=== PATIENT | male | born 1940 | race Caucasian/White ===

== ENCOUNTER 2016-05-12 07:16 | Inpatient (IN) | payer MEDICARE, BC ==
[2016-05-10 13:56] VITALS: BP 118/80
[2016-05-10 14:48] LABS: HEMOGLOBIN 13.4 g/dL (13.7-18.0)
[2016-05-10 14:58] LABS: BLOOD UREA NITROGEN 19 mg/dL (7-18)
[2016-05-10 15:01] LABS: ASPARTATE AMINO TRANSFERASE 8 U/L (15-37)
[~2016-05-12] VITALS: Ht 165.1 cm; Wt 73.4 kg
[~2016-05-12 07:16] MED LIST: BUPIVACAINE/PF-EPI 0.5% 1:200K ONE; FAMOTIDINE 20 MG TABLET PO SCH; LOSA100T6 PO; METF10002 PO
[2016-05-12] MEDS ORDERED: LACTATED RINGERS 1,000 ML IV SCH (08:08)
[2016-05-12] MEDS ORDERED: LIDOCAINE 1%, 2ML ONE (08:12)
[2016-05-12] MEDS ORDERED: LIDOCAINE 1%, 2ML SQ PRN (08:30)
[2016-05-12] MEDS ORDERED: FENTANYL PF 250 MCG/5ML ONE (09:47)
[2016-05-12] MEDS ORDERED: MIDAZOLAM 1 MG/ML, 2ML ONE (09:47)
[2016-05-12] MEDS ORDERED: DEXAMETHASONE 4 MG/ML, 1ML ONE (10:48)
[2016-05-12] MEDS ORDERED: GLYCOPYRROLATE 0.2MG/1ML ONE (10:48)
[2016-05-12] MEDS ORDERED: CEFAZOLIN 1,000 MG ONE (10:48)
[2016-05-12] MEDS ORDERED: ONDANSETRON 2MG/ML, 2ML ONE (10:48)
[2016-05-12] MEDS ORDERED: SUCCINYLCHOLINE 20 MG/ML, 10ML ONE (10:48)
[2016-05-12] MEDS ORDERED: ROCURONIUM 10 MG/ML ONE (10:48)
[2016-05-12] MEDS ORDERED: NEOSTIGMINE 1 MG/ML, 10ML ONE (10:48)
[2016-05-12] MEDS ORDERED: PROPOFOL 10 MG/ML, 20ML ONE (10:48)
[2016-05-12] MEDS ORDERED: VASOPRESSIN 20 UNIT/ML, 1ML ONE (11:16)
[2016-05-12] MEDS ORDERED: METOPROLOL 1 MG/ML, 5ML IV PRN (12:00)
[2016-05-12] MEDS ORDERED: ONDANSETRON 2MG/ML, 2ML IVPush PRN (12:00)
[2016-05-12] MEDS ORDERED: EPHEDRINE 50 MG/ML, 1ML IVPush PRN (12:00)
[2016-05-12] MEDS ORDERED: HYDROmorphone 1 MG/ML, 1ML IV PRN (12:00)
[2016-05-12] MEDS ORDERED: ALBUTEROL SULFATE 2.5 MG/3 ML NPPB PRN (12:00)
[2016-05-12] MEDS ORDERED: OXYcodone 5 MG/5 ML ORAL.SOL UDC PO PRN (12:00)
[2016-05-12] MEDS ORDERED: ACETAMINOPHEN 325 MG TABLET PO PRN ×2 (12:00→13:00)
[2016-05-12] MEDS ORDERED: MIDAZOLAM 1 MG/ML, 2ML IV PRN (12:00)
[2016-05-12] MEDS ORDERED: hydrALAzine 20 MG/ML, 1ML IV PRN (12:00)
[2016-05-12] MEDS ORDERED: LABETALOL 5MG/ML, 20ML IV PRN (12:00)
[2016-05-12] MEDS ORDERED: MEPERIDINE/PF 25MG/0.5ML IVPush PRN (12:00)
[2016-05-12] MEDS ORDERED: OXYcodone 5 MG/5 ML ORAL.SOL UDC ONE (12:52)
[2016-05-12] MEDS ORDERED: ACETAMINOPHEN 325 MG TABLET ONE (12:52)
[2016-05-12] MEDS ORDERED: ACETAMINOPHEN 650 MG/20.3 ML UDC ONE (12:52)
[2016-05-12] MEDS ORDERED: FENTANYL PF 100 MCG/2ML ONE (12:52)
[2016-05-12] MEDS: FENTANYL PF 100 MCG/2ML IV PRN ×4 (12:55→13:58)
[2016-05-12] MEDS: INSULIN REGULAR 100 UNITS/ML, 3ML VIAL SQ-INSULIN SCH ×3 (13:00→20:08)
[2016-05-12] MEDS ORDERED: FAMOTIDINE 20 MG/2 ML IVPush SCH (13:00)
[2016-05-12] MEDS ORDERED: FAMOTIDINE 20 MG TABLET PO SCH (13:00)
[2016-05-12] MEDS ORDERED: CEFAZOLIN PMX 1GM/50ML 50 ML IVPB SCH (13:00)
[2016-05-12] MEDS ORDERED: ENALAPRILAT 1.25 MG/ML, 2ML IVPush PRN (13:00)
[2016-05-12] MEDS ORDERED: LORazepam 1MG TABLET PO PRN (13:00)
[2016-05-12] MEDS ORDERED: ACETAMINOPHEN 650 MG SUPP PR PRN (13:00)
[2016-05-12] MEDS ORDERED: DIPHENHYDRAMINE 25 MG CAPSULE PO PRN (13:00)
[2016-05-12] MEDS ORDERED: hydrALAzine 20 MG/ML, 1ML IVPush PRN (13:00)
[2016-05-12] MEDS ORDERED: DIPHENHYDRAMINE 50 MG/ML, 1ML IVPush PRN (13:00)
[2016-05-12] MEDS ORDERED: LORazepam 2 MG/ML, 1ML IVPush PRN (13:00)
[2016-05-12 14:49] VITALS: BP 121/72
[2016-05-12] MEDS: HYDROcodone/APAP 5/325 TABLET PO PRN (16:12)
[2016-05-12] MEDS: LACTATED RINGERS 1,000 ML IV SCH (16:21)
[2016-05-12] MEDS: ONDANSETRON 2MG/ML, 2ML IVPush PRN (17:33)
[2016-05-12 18:20] VITALS: BP 138/82
[2016-05-12] MEDS: CEFAZOLIN PMX 1GM/50ML 50 ML IVPB SCH (19:41)
[2016-05-12] MEDS: metFORMIN 500 MG TABLET PO SCH (20:16)
[2016-05-12 23:48] VITALS: BP 124/71
[2016-05-13] MEDS: ONDANSETRON 2MG/ML, 2ML IVPush PRN ×3 (00:40→15:47)
[2016-05-13 04:00] VITALS: BP 121/73
[2016-05-13] MEDS: HYDROcodone/APAP 5/325 TABLET PO PRN (04:42)
[2016-05-13] MEDS: CEFAZOLIN PMX 1GM/50ML 50 ML IVPB SCH (04:42)
[2016-05-13] MEDS: FAMOTIDINE 20 MG TABLET PO SCH ×2 (04:42→16:30)
[2016-05-13 05:02] LABS: BLOOD UREA NITROGEN 25 mg/dL (7-18)
[2016-05-13 05:03] LABS: HEMOGLOBIN 10.2 g/dL (13.7-18.0)
[2016-05-13 06:42] VITALS: BP 115/74
[2016-05-13] MEDS: INSULIN REGULAR 100 UNITS/ML, 3ML VIAL SQ-INSULIN SCH ×4 (07:00→19:46)
[2016-05-13] MEDS: LACTATED RINGERS 1,000 ML IV SCH (08:00)
[2016-05-13] MEDS: LOSARTAN 50MG TABLET PO SCH (08:55)
[2016-05-13] MEDS: metFORMIN 500 MG TABLET PO SCH ×2 (08:56→19:40)
[2016-05-13] MEDS: ENOXAPARIN 40 MG/0.4 ML SQ SCH (08:56)
[2016-05-13] MEDS ORDERED: MORPHINE SULFATE 4 MG/ML, 1ML IVPush PRN (11:30)
[2016-05-13 12:30] VITALS: BP 125/78
[2016-05-13 18:20] VITALS: BP 112/70
[2016-05-14] MEDS: HYDROcodone/APAP 5/325 TABLET PO PRN (01:05)
[2016-05-14 01:06] VITALS: BP 118/73
[2016-05-14] MEDS: FAMOTIDINE 20 MG TABLET PO SCH (05:00)
[2016-05-14 06:41] VITALS: BP 104/69
[2016-05-14] MEDS: INSULIN REGULAR 100 UNITS/ML, 3ML VIAL SQ-INSULIN SCH ×2 (07:00→12:06)
[2016-05-14] MEDS: ENOXAPARIN 40 MG/0.4 ML SQ SCH (08:53)
[2016-05-14] MEDS: LOSARTAN 50MG TABLET PO SCH (08:54)
[2016-05-14] MEDS: metFORMIN 500 MG TABLET PO SCH (08:54)
== END 2016-05-14 12:44 | disposition home or self-care (01) | DRG 165 ==
LOC: ORIP 07:16 → 3NW 14:24
PROVIDERS: ADMIT Thoracic Surgery (Cardiothoracic Vascular Surgery); ATTEND Thoracic Surgery (Cardiothoracic Vascular Surgery)
PROC: 07B74ZX Excision of Thorax Lymphatic, Percutaneous Endoscopic Approach, Diagnostic (ICD-10-PCS; 2016-05-12)
PROC: 0BTD4ZZ Resection of Right Middle Lung Lobe, Percutaneous Endoscopic Approach (ICD-10-PCS; principal; 2016-05-12 10:00)
DX: C34.2 Malignant neoplasm of middle lobe, bronchus or lung (principal); Z87.891 Personal history of nicotine dependence; I10 Essential (primary) hypertension; E11.9 Type 2 diabetes mellitus without complications; G47.33 Obstructive sleep apnea (adult) (pediatric); Z98.49 Cataract extraction status, unspecified eye
CPT/HCPCS: 36415; 71010; 80048; 80053; 82962; 85025; 86850; 86900; 86923; 88305; 88309; 93005; C1729; J0690; J1100; J1650; J1815; J2250; J2270; J2405; J2704; J2710; J3010; J3490; C1760; J0330; S0028

== ENCOUNTER → 2016-11-30 | Outpatient (CLI) | payer BC ==
[~2016-11-30] MED LIST changes: -BUPIVACAINE/PF-EPI 0.5% 1:200K ONE; -FAMOTIDINE 20 MG TABLET PO SCH
== END | disposition home or self-care (01) ==
LOC: ROC 13:04
PROVIDERS: ATTEND Radiology Radiation Oncology
DX: C34.2 Malignant neoplasm of middle lobe, bronchus or lung (principal); E11.9 Type 2 diabetes mellitus without complications; I10 Essential (primary) hypertension; Z87.891 Personal history of nicotine dependence
CPT/HCPCS: 99213; G0463

== ENCOUNTER → 2016-12-04 | Outpatient (CLI) | payer BC ==
[~2016-12-04] MED LIST changes: +GADOBUTROL 7.5 MMOL/7.5 ML PFS ONE
== END | disposition home or self-care (01) ==
LOC: CFH 13:00
PROVIDERS: ATTEND Radiology Radiation Oncology
DX: C34.2 Malignant neoplasm of middle lobe, bronchus or lung (principal); C79.31 Secondary malignant neoplasm of brain; G31.9 Degenerative disease of nervous system, unspecified; I10 Essential (primary) hypertension; E11.9 Type 2 diabetes mellitus without complications
CPT/HCPCS: 70553; A9585

== ENCOUNTER → 2017-01-17 | Outpatient (CLI) | payer BC ==
[~2017-01-17] MED LIST changes: -GADOBUTROL 7.5 MMOL/7.5 ML PFS ONE
== END | disposition home or self-care (01) ==
LOC: ROC 07:29
PROVIDERS: ATTEND Radiology Radiation Oncology
DX: C34.90 Malignant neoplasm of unspecified part of unspecified bronchus or lung (principal); E11.9 Type 2 diabetes mellitus without complications
CPT/HCPCS: 99213; G0463

== ENCOUNTER → 2017-03-06 | Outpatient (CLI) | payer BC ==
[~2017-03-06] MED LIST changes: +GADOBUTROL 7.5 MMOL/7.5 ML PFS ONE
== END | disposition home or self-care (01) ==
LOC: CFH 10:24
PROVIDERS: ATTEND Radiology Radiation Oncology
DX: C79.31 Secondary malignant neoplasm of brain (principal); C34.90 Malignant neoplasm of unspecified part of unspecified bronchus or lung; G31.89 Other specified degenerative diseases of nervous system
CPT/HCPCS: 70553; A9585

== ENCOUNTER → 2017-03-07 | Outpatient (CLI) | payer BC ==
[~2017-03-07] MED LIST changes: -GADOBUTROL 7.5 MMOL/7.5 ML PFS ONE
== END | disposition home or self-care (01) ==
LOC: ROC 07:59
PROVIDERS: ATTEND Radiology Radiation Oncology
DX: Z08 Encounter for follow-up examination after completed treatment for malignant neoplasm (principal); C34.2 Malignant neoplasm of middle lobe, bronchus or lung
CPT/HCPCS: 99213; G0463

== ENCOUNTER → 2017-05-08 | Outpatient (CLI) | payer BC ==
[~2017-05-08] MED LIST changes: +GADOBUTROL 7.5 MMOL/7.5 ML VIAL ONE
== END ==
LOC: CFH 08:57
PROVIDERS: ATTEND Radiology Radiation Oncology
DX: C79.31 Secondary malignant neoplasm of brain (principal); C34.91 Malignant neoplasm of unspecified part of right bronchus or lung
CPT/HCPCS: 70553; A9585

== ENCOUNTER → 2017-05-10 | Outpatient (CLI) | payer BC ==
[~2017-05-10] MED LIST changes: -GADOBUTROL 7.5 MMOL/7.5 ML VIAL ONE
== END | disposition home or self-care (01) ==
LOC: ROC 09:03
PROVIDERS: ATTEND Radiology Radiation Oncology
DX: Z08 Encounter for follow-up examination after completed treatment for malignant neoplasm (principal); C71.1 Malignant neoplasm of frontal lobe; C34.2 Malignant neoplasm of middle lobe, bronchus or lung
CPT/HCPCS: 99213; G0463

== ENCOUNTER → 2017-07-06 | Outpatient (CLI) | payer BC ==
[~2017-07-06] MED LIST changes: +GADOBUTROL 7.5 MMOL/7.5 ML PFS ONE
== END | disposition home or self-care (01) ==
LOC: CFH 11:56
PROVIDERS: ATTEND Radiology Radiation Oncology
DX: C79.31 Secondary malignant neoplasm of brain (principal); C34.2 Malignant neoplasm of middle lobe, bronchus or lung; I10 Essential (primary) hypertension
CPT/HCPCS: 70553; A9585

== ENCOUNTER → 2017-07-11 | Outpatient (CLI) | payer BC ==
[~2017-07-11] MED LIST changes: -GADOBUTROL 7.5 MMOL/7.5 ML PFS ONE
== END | disposition home or self-care (01) ==
LOC: ROC 07:18
PROVIDERS: ATTEND Radiology Radiation Oncology
DX: Z08 Encounter for follow-up examination after completed treatment for malignant neoplasm (principal); C34.2 Malignant neoplasm of middle lobe, bronchus or lung; C79.31 Secondary malignant neoplasm of brain
CPT/HCPCS: 99213; G0463

== ENCOUNTER → 2017-09-05 | Outpatient (CLI) | payer BC ==
[~2017-09-05] MED LIST changes: +GADOBUTROL 7.5 MMOL/7.5 ML PFS ONE
== END | disposition home or self-care (01) ==
LOC: CFH 07:15
PROVIDERS: ATTEND Radiology Radiation Oncology
DX: C79.31 Secondary malignant neoplasm of brain (principal); R90.82 White matter disease, unspecified; I10 Essential (primary) hypertension; C34.2 Malignant neoplasm of middle lobe, bronchus or lung
CPT/HCPCS: 70553; A9585

== ENCOUNTER → 2017-09-12 | Outpatient (CLI) | payer BC ==
[~2017-09-12] MED LIST changes: -GADOBUTROL 7.5 MMOL/7.5 ML PFS ONE
== END | disposition home or self-care (01) ==
LOC: ROC 07:18
PROVIDERS: ATTEND Radiology Radiation Oncology
DX: C34.2 Malignant neoplasm of middle lobe, bronchus or lung (principal)
CPT/HCPCS: 99213; G0463

== ENCOUNTER → 2017-11-07 | Outpatient (CLI) | payer BC ==
[~2017-11-07] MED LIST changes: +GADOBUTROL 7.5 MMOL/7.5 ML PFS ONE
== END | disposition home or self-care (01) ==
LOC: CFH 10:39
PROVIDERS: ATTEND Radiology Radiation Oncology
DX: C79.31 Secondary malignant neoplasm of brain (principal); C34.90 Malignant neoplasm of unspecified part of unspecified bronchus or lung; E11.9 Type 2 diabetes mellitus without complications
CPT/HCPCS: 70553; A9585

== ENCOUNTER → 2017-11-14 | Outpatient (CLI) | payer BC ==
[~2017-11-14] MED LIST changes: -GADOBUTROL 7.5 MMOL/7.5 ML PFS ONE
== END | disposition home or self-care (01) ==
LOC: ROC 07:17
PROVIDERS: ATTEND Radiology Radiation Oncology
DX: C79.31 Secondary malignant neoplasm of brain (principal); C34.2 Malignant neoplasm of middle lobe, bronchus or lung; E11.9 Type 2 diabetes mellitus without complications
CPT/HCPCS: 99213; G0463

== ENCOUNTER → 2018-01-02 | Outpatient (CLI) | payer BC ==
[~2018-01-02] MED LIST changes: +GADOBUTROL 7.5 MMOL/7.5 ML PFS ONE; -LOSA100T6 PO; +LOSA100T7 PO
== END | disposition home or self-care (01) ==
LOC: CFH 10:01
PROVIDERS: ATTEND Radiology Radiation Oncology
DX: G31.9 Degenerative disease of nervous system, unspecified (principal); R90.82 White matter disease, unspecified; C79.31 Secondary malignant neoplasm of brain
CPT/HCPCS: 70553; A9585

== ENCOUNTER → 2018-01-09 | Outpatient (CLI) | payer BC ==
[~2018-01-09] MED LIST changes: -GADOBUTROL 7.5 MMOL/7.5 ML PFS ONE
== END | disposition home or self-care (01) ==
LOC: ROC 08:48
PROVIDERS: ATTEND Radiology Radiation Oncology
DX: C79.31 Secondary malignant neoplasm of brain (principal); C34.2 Malignant neoplasm of middle lobe, bronchus or lung
CPT/HCPCS: 99213; G0463

== ENCOUNTER → 2018-04-08 | Outpatient (CLI) | payer BC ==
[~2018-04-08] MED LIST changes: +GADOBUTROL 7.5 MMOL/7.5 ML PFS ONE
== END | disposition home or self-care (01) ==
LOC: CFH 10:23
PROVIDERS: ATTEND Radiology Radiation Oncology
DX: G31.9 Degenerative disease of nervous system, unspecified (principal); I67.82 Cerebral ischemia; I10 Essential (primary) hypertension
CPT/HCPCS: 70553; A9585

== ENCOUNTER → 2018-04-10 | Outpatient (CLI) | payer BC ==
[~2018-04-10] MED LIST changes: -GADOBUTROL 7.5 MMOL/7.5 ML PFS ONE
== END | disposition home or self-care (01) ==
LOC: ROC 07:13
PROVIDERS: ATTEND Radiology Radiation Oncology
DX: Z08 Encounter for follow-up examination after completed treatment for malignant neoplasm (principal); C79.31 Secondary malignant neoplasm of brain
CPT/HCPCS: 99213; G0463

== ENCOUNTER → 2018-07-08 | Outpatient (CLI) | payer BC ==
[~2018-07-08] MED LIST changes: +GADOBUTROL 7.5 MMOL/7.5 ML PFS ONE; +LOSA100T14 PO; -LOSA100T7 PO
== END | disposition home or self-care (01) ==
LOC: CFH 09:01
PROVIDERS: ATTEND Radiology Radiation Oncology
DX: C79.49 Secondary malignant neoplasm of other parts of nervous system (principal); C34.90 Malignant neoplasm of unspecified part of unspecified bronchus or lung; G31.89 Other specified degenerative diseases of nervous system
CPT/HCPCS: 70553; A9585

== ENCOUNTER → 2018-07-10 | Outpatient (CLI) | payer BC ==
[~2018-07-10] MED LIST changes: -GADOBUTROL 7.5 MMOL/7.5 ML PFS ONE
== END | disposition home or self-care (01) ==
LOC: ROC 07:46
PROVIDERS: ATTEND Radiology Radiation Oncology
DX: T45.515A Adverse effect of anticoagulants, initial encounter (principal); H02.9 Unspecified disorder of eyelid; Z85.118 Personal history of other malignant neoplasm of bronchus and lung; Z92.3 Personal history of irradiation; Z79.899 Other long term (current) drug therapy; Y92.89 Other specified places as the place of occurrence of the external cause
CPT/HCPCS: 99213; G0463

== ENCOUNTER 2018-10-07 12:31 | Outpatient (CLI) | payer BC ==
[2018-10-07] MEDS ORDERED: GADOBUTROL 7.5 MMOL/7.5 ML PFS ONE (13:04)
== END 2018-10-07 23:59 | disposition home or self-care (01) ==
LOC: CFH 12:31
PROVIDERS: ATTEND Radiology Radiation Oncology
DX: C79.31 Secondary malignant neoplasm of brain (principal)
CPT/HCPCS: 70553; A9585

== ENCOUNTER 2018-10-22 08:36 | Outpatient (CLI) | payer BC | END 2018-10-22 23:59 | disposition home or self-care (01) | LOC: ROC 08:36 | PROVIDERS: ATTEND Radiology Radiation Oncology | DX: C79.31 Secondary malignant neoplasm of brain (principal); C34.31 Malignant neoplasm of lower lobe, right bronchus or lung | CPT/HCPCS: 99213; G0463 ==

== ENCOUNTER 2018-11-01 11:49 | Outpatient (CLI) | payer BC | END 2018-11-01 23:59 | disposition home or self-care (01) | LOC: CFH 11:49 | PROVIDERS: ATTEND Radiology Radiation Oncology | DX: C34.90 Malignant neoplasm of unspecified part of unspecified bronchus or lung (principal); G93.89 Other specified disorders of brain | CPT/HCPCS: 70553; A9585 ==